=== PATIENT | female | born 2000 | race Caucasian/White ===

== ENCOUNTER 2024-01-02 17:19 | Emergency (ER) | payer OTHER, SELFPAY ==
[2024-01-02 17:52] VITALS: BP 98/67; PULSE 65; RESP 16; TEMP 36.2; O2SAT 98
--- NOTE | 2024-01-02 18:32 | ED.URI ---
HPI - URI/Sore Throat General Chief Complaint: Upper Respiratory Infection Stated Complaint: Cold symptoms Time Seen by Provider: 01/02/24 18:32 Source: patient Mode of arrival: ambulatory Limitations: no limitations History of Present Illness HPI Narrative: 23-year-old female presents with complaint of nasal congestion, postnasal drainage and sore throat starting this morning. Afebrile. No other symptoms. patient well-appearing. All Systems reviewed and negative except as noted above. Related Data Home Medications Medication Instructions Recorded Confirmed metformin 500 mg tablet,extended mg PO 01/02/24 release 24 hr Allergies Allergy/AdvReac Type Severity Reaction Status Date / Time No Known Allergies Allergy Verified 01/02/24 18:20 Review of Systems Review of Systems: CONSTITUTIONAL: Denies fever, chills, or sweats. EYES: Denies visual changes, redness, or discharge. ENT: Reports rhinorrhea, congestion, sore throat. Denies otalgia. CARDIOVASCULAR: Denies chest pain, palpitations, or edema. RESPIRATORY: Denies cough or dyspnea. GASTROINTESTINAL: Denies abdominal pain, nausea, vomiting, or diarrhea. GENITOURINARY: Denies dysuria or hematuria. SKIN: Denies rash or itching. MUSCULOSKELETAL: Denies back pain, joint pain, or myalgia. NEUROLOGIC: Denies headache, numbness, or weakness. PSYCHIATRIC: Denies anxiety or depression. All other systems reviewed are negative, except as documented in HPI. PMFSH Comments At time of signature, agree with nursing past medical, surgical, social and family history. There is no relevant family history pertinent to the presenting complaint. Exam Narrative: GENERAL: This is a well-nourished, well-developed patient, in no apparent distress. HEAD: normocephalic, atraumatic. EYES: PERRL. Sclera clear/white. Vision is grossly intact. EARS: External ears normal, auditory canals clear and without drainage, TMs normal without perforation. Hearing grossly intact. NOSE: External nose normal with no obvious nasal discharge, nares without redness, no rhinorrhea. THROAT: Mucous membranes moist, clear postnasal drainage with mild erythema. No significant swelling or exudates. NECK: Neck supple, non-tender without lymphadenopathy, masses or thyromegaly. CARDIOVASCULAR: Regular rate and rhythm without murmurs, gallops, or rubs. RESPIRATORY: Clear to auscultation. Breath sounds equal bilaterally. No wheezes, rales, or rhonchi. GASTROINTESTINAL: Abdomen soft, non-tender, nondistended. Bowel sounds are active. No hepato-splenomegaly, or palpable masses. No guarding. SKIN: warm, Dry, intact with no suspicious lesions or rash, good texture and turgor. NEURO: awake, alert, and oriented to person, place and time. There were no obvious focal neurologic abnormalities. EXTREMITIES: No joint tenderness, effusion, or edema noted. Course Course Level of Care: Express Care Visit Vital Signs Vital signs: Vital Signs Temperature 36.2 C L 01/02/24 17:52 Pulse Rate 65 01/02/24 17:52 Respiratory Rate 16 01/02/24 17:52 Blood Pressure 98/67 L 01/02/24 17:52 Pulse Oximetry 98 01/02/24 17:52 Oxygen Delivery Room Air 01/02/24 17:52 Temperature 36.2 C L 01/02/24 17:52 Pulse Rate 65 01/02/24 17:52 Respiratory Rate 16 01/02/24 17:52 Blood Pressure 98/67 L 01/02/24 17:52 Pulse Oximetry 98 01/02/24 17:52 Oxygen Delivery Room Air 01/02/24 17:52 Reviewed MDM - URI/Sore Throat MDM Narrative Medical decision making narrative: Patient is aware of diagnosis, understands and agrees to treatment plan. Anticipatory guidance given. Patient agrees to follow-up as directed and is aware of reasons to seek care at the emergency department. Portions of this record may have been created with voice recognition software Differential Diagnosis Differential diagnosis: Likely upper respiratory infection, sinusitis and viral infection Discharge Plan Discharge
[2024-01-02 18:49] LABS: EDSTREPNEGPOS1 Presumptive Negative
== END 2024-01-02 18:58 | disposition home or self-care (01) ==
PROVIDERS: Emergency Provider Nurse Practitioner Family
DX: J01.90 Acute sinusitis, unspecified (principal); E28.2 Polycystic ovarian syndrome
CPT/HCPCS: 87081; 87880; 99203; G0463